=== PATIENT | female | born 1975 | race Caucasian/White ===

== ENCOUNTER 2016-11-08 08:56 | Emergency (ER) | payer OTHER ==
[2016-11-08 08:56] VITALS: BMI 34.0
[2016-11-08 09:01] VITALS: TEMP 99.2; O2SAT 99
--- NOTE | 2016-11-08 09:35 | ED PDOC ---
HPI: Abdomen Time Seen by Provider: 11/08/16 09:11 Chief Complaint (Nursing): Abdominal Pain Chief Complaint (Provider): abdominal pain History Per: Patient History/Exam Limitations: no limitations Onset/Duration Of Symptoms: Days (x 4) Location Of Pain/Discomfort: LLQ Additional Complaint(s): Alivia Meyer is a 41 year old female, with a previous medical history of fibroids , hypertension and ovarian cysts, who presents to the ED with complaints of left lower quadrant pain associated with dysuria and white vaginal discharge ongoing for 4 days status post abdominoplasty. Patient denies any nausea, vomiting, diarrhea, fever or chills. PMD: none provided Abnormal Vaginal Bleeding: No Past Medical History Reviewed: Historical Data, Nursing Documentation, Vital Signs Vital Signs: Last Vital Signs Temp 99.2 F 11/08/16 09:01 Pulse 100 H 11/08/16 09:01 Resp 20 11/08/16 09:01 BP 156/107 H 11/08/16 09:01 Pulse Ox 99 11/08/16 09:40 - Medical History PMH: Anemia, Asthma, Gastritis, GERD, HTN Denies: Chronic Kidney Disease Other PMH: ovarian cyst, fibroids - Surgical History Surgical History: Cholecystectomy Other surgeries: abdominoplasty - Family History Family History: States: Unknown Family Hx - Home Medications Home Medications: Ambulatory Orders Medication Instructions Recorded Hydrochlorothiazide [HCTZ] 25 mg PO DAILY 12/28/14 oxyCODONE/Acetaminophen [Percocet 1 ea PO Q6H PRN #15 tab 02/24/15 5/325 mg Tab] Ibuprofen [Motrin] 600 mg PO TID PRN #30 tab 09/07/15 oxyCODONE/Acetaminophen [Percocet 1 ea PO Q6 PRN #10 tab 09/07/15 5/325 mg Tab] Ciprofloxacin HCl [Cipro] 500 mg PO BID #20 tab 11/08/16 Naproxen [Naprosyn] 500 mg PO Q12H #20 tab 11/08/16 - Allergies Allergies/Adverse Reactions: Allergies Allergy/AdvReac Type Severity Reaction Status Date / Time No Known Allergies Allergy Verified 02/24/15 13:09 Review of Systems ROS Statement: Except As Marked, All Systems Reviewed And Found Negative Constitutional: Negative for: Fever, Chills Gastrointestinal: Positive for: Abdominal Pain (LLQ). Negative for: Nausea, Vomiting, Diarrhea Genitourinary Female: Positive for: Dysuria, Vaginal Discharge (white) Physical Exam - Reviewed Nursing Documentation Reviewed: Yes Vital Signs Reviewed: Yes - Physical Exam Appears: Positive for: Well, Non-toxic, No Acute Distress Skin: Positive for: Normal Color, Warm, Dry Eye Exam: Positive for: Normal appearance Cardiovascular/Chest: Positive for: Regular Rate, Rhythm Respiratory: Positive for: CNT, Normal Breath Sounds Gastrointestinal/Abdominal: Positive for: Bowel Sounds, Soft, Tenderness (LLQ). Negative for: Mass Pelvic Exam: Positive for: No Cerv. Motion Tender, Discharge (mucousy ), Tender Adnexa (left sided ), Other (chaperoned by Melva RN) Back: Positive for: Normal Inspection. Negative for: L CVA Tenderness, R CVA Tenderness Extremity: Positive for: Normal ROM Neurologic/Psych: Positive for: Alert, Oriented - Laboratory Results Result Diagrams: 11/08/16 09:44 11/08/16 09:44 - ECG O2 Sat by Pulse Oximetry: 99 (RA) Pulse Ox Interpretation: Normal Medical Decision Making Medical Decision Making: Initial Plan: * labs * urine * urine dipstick * urine culture * urinalysis * US transvaginal * reevaluation Scribe Attestation: Documented by Keke Jewell, acting as a scribe for Devang Chavez MD. Provider Scribe Attestation: All medical record entries made by the Scribe were at my direction and personally dictated by me. I have reviewed the chart and agree that the record accurately reflects my personal performance of the history, physical exam, medical decision making, and the department course for this patient. I have also personally directed, reviewed, and agree with the discharge instructions and disposition. Disposition - Clinical Impression Clinical Impression: Uterine fibroid, UTI (urinary tract infection) - Patient ED Disposition Is Patient to be Admitted: No Counseled Patient/Family Regarding: Studies Performed, Diagnosis, Need For Followup, Rx Given - Disposition [facility] Disposition: Routine/Home Disposition Time: 12:36 Condition: FAIR Prescriptions: Ciprofloxacin HCl [Cipro] 500 mg PO BID #20 tab Naproxen [Naprosyn] 500 mg PO Q12H #20 tab Instructions: Uterine Fibroids (ED), Urinary Tract Infection in Women (ED)
[2016-11-08 09:50] LABS: BASO # 0.1 K/uL (0.0-0.2); EOS # 0.1 K/uL (0.0-0.7); EOS % 1.7 % (0.0-4.0); HEMOGLOBIN 10.2 g/dL (12.0-16.0); LYMPH # 1.7 K/uL (1.0-4.3); LYMPH % 29.3 % (20.0-40.0); MEAN CELL VOLUME 71.2 fl (81.0-99.0); MEAN CORPUSCULAR HEMOGLOBIN 22.2 pg (27.0-31.0); MEAN CORPUSCULAR HGB CONC 31.2 g/dL (33.0-37.0); MEAN PLATELET VOLUME 7.8 fl (7.2-11.7); MONO # 0.5 K/uL (0.0-0.8); MONO % 8.7 % (0.0-10.0); NEUT # 3.4 K/uL (1.8-7.0); NEUT % 58.3 % (50.0-75.0); RBC 4.59 Mil/uL (3.80-5.20); RED CELL DISTRIBUTION WIDTH 18.2 % (11.5-14.5); WHITE BLOOD COUNT 5.9 K/uL (4.8-10.8)
[2016-11-08 09:58] LABS: SQUAMOUS EPITHIAL 42 /hpf (0-5); URINE BACTERIA RARE (<OCC); URINE BILIRUBIN NEGATIVE (NEGATIVE); URINE BLOOD NEGATIVE (NEGATIVE); URINE CLARITY CLOUDY (Clear); URINE COLOR YELLOW (YELLOW); URINE GLUCOSE (UA) NEG (Normal); URINE LEUKOCYTE ESTERASE LARGE Leu/uL (Negative); URINE NITRATE NEGATIVE (NEGATIVE); URINE PROTEIN 30 mg/dL (NEGATIVE)
[2016-11-08 09:59] LABS: ALB/GLOB RATIO 1.3 (1.0-2.1); ALT/SGPT 30 U/L (9-52); AST/SGOT 21 U/L (14-36); BLOOD UREA NITROGEN 10 mg/dl (7-17); GFR AFRICAN-AMERICAN > 60; GFR NON-AFRICAN AMERICAN > 60
--- NOTE | 2016-11-08 12:39 | US ---
HISTORY: LLQ pain h/o cyst COMPARISON: None available. TECHNIQUE: Transvaginal FINDINGS: UTERUS: Measures 10.4 x 6.1 x 7.0 cm. Two fibroids are identified. There is an anterior midline intramural fibroid, 1.8 x 2.5 x 2.5 cm. There is a posterior fundal midline fibroid, 3.1 x 2.8 x 2.8 cm. ENDOMETRIUM: Measures 14 mm in diameter. Unremarkable. CERVIX: No cervical abnormality identified. RIGHT OVARY: Measures 3.2 x 2.3 x 3.0 cm. No solid mass. Normal flow. LEFT OVARY: Measures 2.7 x 2.0 x 1.6 cm. No solid mass. Normal flow. FREE FLUID: Minimal free fluid in the adnexal region bilaterally. Trace fluid in the cul-de-sac. OTHER FINDINGS: None. IMPRESSION: Minimal fluid in the cul-de-sac adnexae. Two small uterine fibroids incidentally identified. Otherwise unremarkable examination.
[2016-11-08 13:01] VITALS: BP 126/75; PULSE 81; RESP 16
== END 2016-11-08 12:59 | disposition home or self-care (01) ==
LOC: H.ER 08:56
DX: N39.0 Urinary tract infection, site not specified (principal); D25.9 Leiomyoma of uterus, unspecified; I10 Essential (primary) hypertension; J45.909 Unspecified asthma, uncomplicated; K21.9 Gastro-esophageal reflux disease without esophagitis; N83.209 Unspecified ovarian cyst, unspecified side